=== PATIENT | female | born 1965 | race Caucasian/White ===

== ENCOUNTER 2023-03-15 07:22 | Outpatient (CLI) | payer MEDICARE, OTHER, SELFPAY ==
--- NOTE | ~2023-03-15 | US_ITS ---
Limited Abdominal Sonogram: Real-time sonographic imaging of the right upper quadrant was performed. Clinical History: Abnormal LFTs Findings: The liver appears normal with no evidence of mass lesion or bile duct dilatation. Main por melissa vein demonstrates normal direction of flow. The gallbladder is well distended, and appears normal with no evidence of gallstone or wall thickening. The common bile duct measures 6 mm. The visualize d pancreas, aorta, and IVC are unremarkable. Impression: No significant abnormality seen. Reviewed, dictated and finalized at location . Impression: No significant abnormality seen.
== END 2023-03-15 07:23 | disposition home or self-care (01) ==
LOC: CHSIMG 07:25
PROVIDERS: PCP Family Medicine
DX: R79.89 Other specified abnormal findings of blood chemistry (principal)
CPT/HCPCS: 76705